=== PATIENT | male | born 1975 | race Two or more races ===

== ENCOUNTER 2017-09-08 14:05 | Outpatient (CLI) | payer SELFPAY | END 2017-09-08 23:59 | disposition home or self-care (01) | LOC: WOU 14:05 | PROVIDERS: ATTEND Surgery | DX: S01.21XA Laceration without foreign body of nose, initial encounter (principal); W11.XXXA Fall on and from ladder, initial encounter; Y92.89 Other specified places as the place of occurrence of the external cause; F17.210 Nicotine dependence, cigarettes, uncomplicated | CPT/HCPCS: 99204; A6402; Z7610; G0463 ==